=== PATIENT | female | born 1980 | race Caucasian/White ===

== ENCOUNTER 2016-10-07 01:41 | Emergency (ER) | payer SELFPAY ==
[~2016-10-07] VITALS: Ht 170.2 cm; Wt 65.0 kg
[2016-10-07 01:43] VITALS: BP 166/84; PULSE 82; RESP 16; TEMP 98.5; O2SAT 100
[2016-10-07] MEDS ORDERED: IBUP800T23 PO (02:05)
[2016-10-07] MEDS ORDERED: PENI500T PO (02:05)
--- NOTE | 2016-10-07 02:07 | PD ---
HPI Chief Complaint: Oral / Dental Pain or Problem Time Seen by Provider: 02:00 Travel History International Travel<30 days: No Contact w/Intl Traveler<30days: No Traveled to known affect area: No History of Present Illness HPI 35-year-old female presents for evaluation of dental pain. Symptoms started this morning. The pain is an aching pain localized to the left maxillary molars. Pain is worse with chewing. She has had issues with these teeth in the past, has not had a chance to follow up with a dentist. Denies any dental trauma. No fevers. No other complaints. PFSH Past Medical History ?: Not Past Surgical History Section: Yes Other Surgery: Yes (skin grafts to right leg) Social History Alcohol Use: Yes (socially) Tobacco Use: Yes Substance Use: No Allergies-Medications (Allergen,Severity, Reaction): Coded Allergies: No Known Allergies (Unverified , 10/07/16) Reported Meds & Prescriptions Reported Meds & Active Scripts Active No Active Prescriptions or Reported Medications Review of Systems General / Constitutional: No: Fever HENT: Positive: Dental Difficulties Physical Exam Narrative GENERAL: Well-developed well-nourished female in no acute distress SKIN: Warm and dry. HEAD: Atraumatic. Normocephalic. EYES: Pupils equal and round. No scleral icterus. No injection or drainage. ENT: No nasal bleeding or discharge. Mucous membranes pink and moist. Multiple areas of dental decay, tenderness to palpation in the left maxillary molars and premolars. No gingival edema, no facial edema, no trismus NECK: Trachea midline. No JVD. No lymphadenopathy, no submandibular edema Data Data Last Documented VS Vital Signs Date Time Temp Pulse Resp B/P Pulse Ox O2 Delivery O2 Flow Rate FiO2 10/07/16 01:43 98.5 82 16 166/84 100 Room Air Orders Penicillin V Potassium (Veetids) (10/07/16 02:15) Ibuprofen (Motrin) (10/07/16 02:15) MDM Medical Decision Making Medical Screen Exam Complete: Yes Emergency Medical Condition: Yes Medical Record Reviewed: Yes Differential Diagnosis Dental caries, pulpitis, pericoronitis, periodontal abscess Narrative Course 35-year-old female with 1 day of dental pain. Examination reveals dental caries. She is being discharged with ibuprofen and penicillin, recommends outpatient follow-up with a dentist. Diagnosis Primary Impression: Dental caries Additional Instructions: Medication as prescribed. Avoid tobacco products. Follow-up with a dentist for definitive therapy. Return for any emergent medical conditions. Med/Other Pt SpecificInfo: Prescription(s) given Scripts Ibuprofen 800 Mg Isn091 Mg PO Q6HR PRN (PAIN) #40 TAB Ref 0 Prov:Karen Reyna MD 10/07/16 Penicillin V Potassium 500 Mg [id number] Mg PO Q8H 10 Days Ref 0 Prov:Karen Reyna MD 10/07/16 Disposition: 01 DISCHARGE HOME Condition: Stable Harley Jorge Oct 07, 2016 02:07
[2016-10-07] MEDS ORDERED: IBUPROFEN 800 MG TAB PO ONE (02:15)
[2016-10-07] MEDS ORDERED: PENICILLIN V POTASSIUM 500 MG TAB PO ONE (02:15)
== END 2016-10-07 02:59 | disposition home or self-care (01) ==
LOC: NEPD 01:41
DX: K02.9 Dental caries, unspecified (principal); Z72.0 Tobacco use
CPT/HCPCS: 99282

== ENCOUNTER 2016-11-24 20:23 | Emergency (ER) | payer OTHER ==
[~2016-11-24] VITALS: Ht 165.1 cm; Wt 119.8 kg
[~2016-11-24 20:23] MED LIST: IBUP800T23 PO; PENI500T PO
[2016-11-24 20:24] VITALS: BP 168/87; PULSE 101; RESP 16; TEMP 98.7; O2SAT 100
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
[2016-11-24] MEDS ORDERED: KETOROLAC TROMETHAMINE 60 MG/2 ML (IM) VIAL IM ONE (22:00)
[2016-11-24] MEDS ORDERED: CYCLOBENZAPRINE HCL 10 MG TAB PO ONE (22:00)
[2016-11-24] MEDS ORDERED: ONDANSETRON ODT 4 MG TAB PO ONE (22:00)
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
[2016-11-24] MEDS ORDERED: CYCL1TAB29 PO (23:09)
[2016-11-24] MEDS ORDERED: IBUP-232 PO (23:09)
== END 2016-11-24 23:27 | disposition home or self-care (01) ==
LOC: NEPD 20:23
DX: M54.6 Pain in thoracic spine (principal); M54.2 Cervicalgia; R11.2 Nausea with vomiting, unspecified; R39.9 Unspecified symptoms and signs involving the genitourinary system; R42 Dizziness and giddiness; F17.210 Nicotine dependence, cigarettes, uncomplicated; M79.1 Myalgia; V49.50XA Passenger injured in collision with unspecified motor vehicles in traffic accident, initial encounter; Y93.89 Activity, other specified; Y92.410 Unspecified street and highway as the place of occurrence of the external cause
CPT/HCPCS: 70450; 71020; 72072; 72125; 96372; 99285; J1885

== ENCOUNTER 2016-11-26 00:06 | Emergency (ER) | payer OTHER ==
[~2016-11-26] VITALS: Ht 165.1 cm; Wt 122.0 kg
[~2016-11-26 00:06] MED LIST changes: +CYCL1TAB29 PO; +IBUP-232 PO
[2016-11-26 00:09] VITALS: BP 182/97; PULSE 75; RESP 16; TEMP 97.5; O2SAT 100
[2016-11-26] MEDS ORDERED: KETOROLAC TROMETHAMINE 60 MG/2 ML (IM) VIAL IM ONE (00:30)
[2016-11-26] MEDS ORDERED: ORPHENADRINE INJ 60 MG/2 ML AMP IM ONE (00:30)
[2016-11-26] MEDS ORDERED: DICL75TA PO (00:37)
[2016-11-26] MEDS ORDERED: CYCL1TAB29 PO (00:37)
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
== END 2016-11-26 00:47 | disposition home or self-care (01) ==
LOC: NEPK 00:06
DX: S16.1XXA Strain of muscle, fascia and tendon at neck level, initial encounter (principal); R11.2 Nausea with vomiting, unspecified; R20.2 Paresthesia of skin; R42 Dizziness and giddiness; F17.200 Nicotine dependence, unspecified, uncomplicated; V59.88XA Occupant (driver) (passenger) of pick-up truck or van injured in other specified transport accidents, initial encounter
CPT/HCPCS: 96372; 99284; J1885; J2360

== ENCOUNTER 2016-11-28 00:46 | Emergency (ER) | payer OTHER ==
[~2016-11-28] VITALS: Ht 165.1 cm; Wt 119.4 kg
[~2016-11-28 00:46] MED LIST changes: +DICL75TA PO
[2016-11-28 00:57] VITALS: BP 143/94; PULSE 90; RESP 16; TEMP 98.2; O2SAT 100
[2016-11-28] MEDS ORDERED: ORPHENADRINE INJ 60 MG/2 ML AMP IM ONE (01:45)
[2016-11-28] MEDS ORDERED: KETOROLAC TROMETHAMINE 60 MG/2 ML (IM) VIAL IM ONE (01:45)
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
[2016-11-28 01:48] LABS: BLOOD, URINE NEG (NEG); GLUCOSE,URINE NEG (NEG); KETONE, URINE TRACE mg/dL (NEG); NITRITE,URINE NEG (NEG)
[2016-11-28 01:54] LABS: COMMENT (UR) CULT NOT INDICATED; CULTURE IF INDICATED CULT NOT INDICATED; RBC, URINE 0-2 /hpf (0-3); SQUAMOUS EPITHELIAL CELL URINE 0-5 /hpf (0-5); URINE COLOR YELLOW (YELLW/STRAW); WBC, URINE 0-2 /hpf (0-5)
[2016-11-28 02:49] VITALS: RESP 16
== END 2016-11-28 02:13 | disposition home or self-care (01) ==
LOC: PHED 00:46
DX: S16.1XXA Strain of muscle, fascia and tendon at neck level, initial encounter (principal); S29.012A Strain of muscle and tendon of back wall of thorax, initial encounter; F17.210 Nicotine dependence, cigarettes, uncomplicated; V49.59XA Passenger injured in collision with other motor vehicles in traffic accident, initial encounter; Y92.410 Unspecified street and highway as the place of occurrence of the external cause
CPT/HCPCS: 81001; 84703; 96372; 99284; J1885; J2360

== ENCOUNTER 2017-02-05 23:14 | Emergency (ER) | payer SELFPAY ==
[~2017-02-05] VITALS: Ht 165.1 cm; Wt 113.0 kg
[~2017-02-05 23:14] MED LIST changes: -CYCL1TAB29 PO; -DICL75TA PO; -IBUP800T23 PO; -PENI500T PO
[2017-02-05 23:18] VITALS: BP 165/100; PULSE 85; RESP 15; TEMP 97.8; O2SAT 99
[2017-02-05] MEDS ORDERED: PROPARACAINE HCL 0.5% OPHT SOLN 15 ML BTL LEFT EYE ONE (23:30)
--- NOTE | 2017-02-05 23:59 | PD ---
HPI Chief Complaint: Eye Problems/Injury Time Seen by Provider: 23:52 Travel History International Travel<30 days: No Contact w/Intl Traveler<30days: No Traveled to known affect area: No History of Present Illness HPI 36-year-old female presents for evaluation of left eye pain. She reports that she poked her eye with the plant this afternoon. She now has a burning pain in her left eye which is constant, worse when her eye is open. She does not wear contacts or glasses. No other complaints. Last tetanus vaccination within 5 years. PFSH Past Medical History Medical History: Denies Significant Hx Immunizations Current: Yes Tetanus Vaccination: < 5 Years Influenza Vaccination: No ?: Unknown LMP: 02-04-17 Tubal Ligation: Yes Past Surgical History Section: Yes (X3) Other Surgery: Yes (skin grafts to right leg) Social History Alcohol Use: Yes (socially) Tobacco Use: Yes (PACK A DAY ) Substance Use: No Allergies-Medications (Allergen,Severity, Reaction): Coded Allergies: No Known Allergies (Unverified , 02/05/17) Reported Meds & Prescriptions Reported Meds & Active Scripts Active Polytrim Opth Drops (Polymyxin/Trimethoprim Sulfate) 10,000-0.1 Unit/Ml-% Soln 1 Drop LEFT EYE Q6HR 7 Days Lortab (Hydrocodone-Acetaminophen) 5-325 Mg Tab 1 Tab PO Q6H PRN Ibuprofen 600 Mg Tab 600 Mg PO Q6H PRN Review of Systems General / Constitutional: No: Fever, Chills Eyes: Positive: Pain, Tearing, No: Blurred Vision, Blind Spots HENT: No: Headaches Physical Exam Narrative GENERAL: Well-developed well-nourished female who appears uncomfortable on initial examination. SKIN: Warm and dry. HEAD: Atraumatic. Normocephalic. EYES: Pupils equal and round, reactive to light, extraocular muscles are intact , left eye conjunctival injection is present. There is no ciliary flush, chemosis, hypopyon or hyphema. Wood's lamp reveals a corneal abrasion at the 2 o'clock position not overlying the pupil, negative Phu's. ENT: No nasal bleeding or discharge. Mucous membranes pink and moist. NECK: Trachea midline. No JVD. Data Data Last Documented VS Vital Signs Date Time Temp Pulse Resp B/P Pulse Ox O2 Delivery O2 Flow Rate FiO2 02/05/17 23:18 97.8 85 15 165/100 99 Room Air Orders Proparacaine 0.5% Opth Soln (Alcaine 0.5 (02/05/17 23:30) Acetamin-Hydrocod 325-5 Mg (Talmo 5-325 (02/06/17 00:15) MDM Medical Decision Making Medical Screen Exam Complete: Yes Emergency Medical Condition: Yes Medical Record Reviewed: Yes Differential Diagnosis Corneal abrasion, ruptured globe, foreign body, trauma, iritis, endophthalmitis Narrative Course 36-year-old female here with left eye pain after poking her left eye with a plan to. Examination reveals a corneal abrasion at the 2 o'clock position on the left eye not overlying the pupil with no evidence of foreign body or ruptured globe. The patient is being discharged with a short course of Polytrim ophthalmic solution and Lortab for breakthrough pain. Diagnosis Primary Impression: Corneal abrasion, left Qualified Code: S05.02XA - Abrasion of left cornea, initial encounter Additional Instructions: Medication as prescribed. Do not drive or drink alcohol when taking Lortab. Follow up with primary care physician. Return for any acutely new or worsening symptoms. Med/Other Pt SpecificInfo: Prescription(s) given Scripts Polymyxin B-Trimethoprim Opth Drops (Polytrim Opth Drops)10,000-0.1 Unit/Ml-% Soln1 Drop LEFT EYE Q6HR 7 Days Ref 0 Prov:Rick Bello MD 02/06/17 Hydrocodone-Acetaminophen (Lortab)5-325 Mg Tab1 Tab PO Q6H PRN (PAIN) #15 TAB Ref 0 Prov:Rick Bello MD 02/06/17 Disposition: 01 DISCHARGE HOME Condition: Stable Harley Jorge Feb 05, 2017 23:59
[2017-02-06] MEDS ORDERED: POLY10O LEFT EYE (00:09)
[2017-02-06] MEDS ORDERED: HYDR-3533 PO (00:09)
[2017-02-06] MEDS ORDERED: ACETAMINOPHEN/HYDROcodone 325 MG/5 MG TAB PO ONE (00:15)
== END 2017-02-06 01:00 | disposition home or self-care (01) ==
LOC: NEPK 23:14
DX: S05.02XA Injury of conjunctiva and corneal abrasion without foreign body, left eye, initial encounter (principal); X58.XXXA Exposure to other specified factors, initial encounter
CPT/HCPCS: 99284